=== PATIENT | male | born 1985 | race Caucasian/White ===

== ENCOUNTER 2020-05-01 23:06 | Emergency (ER) | payer MEDICAID, SELFPAY ==
[~2020-05-01] VITALS: Ht 170.2 cm; Wt 86.2 kg
[2020-05-01 23:43] VITALS: Ht 170.2 cm; Wt 86.2 kg
[2020-05-02 04:56] LABS: BASOPHIL % 0.4 % (0-2); PLATELET COUNT 168 x10^3mcL (130-400); RED CELL DISTRIBUTION WIDTH 14.1 % (11.5-14.5)
[2020-05-02 05:21] LABS: CALCIUM 9.3 mg/dL (8.5-10.1); CARBON DIOXIDE 23.9 mmol/L (21-32); CHLORIDE SERUM 100 mmol/L (98-107); GFR1 > 60 mL/min; GLUCOSE SERUM 101 mg/dL (74-106); POTASSIUM SERUM 3.3 mmol/L (3.5-5.1); SODIUM SERUM 133 mmol/L (136-145)
[2020-05-02 05:28] LABS: ALBUMIN 4.6 g/dL (3.4-5.0); ALKALINE PHOSPHATASE 52 U/L (46-116); ALT/SGPT 38 U/L (16-63); AST/SGOT 18 U/L (15-37); BILIRUBIN TOTAL 1.6 mg/dL (0.20-1.00)
[2020-05-02 05:35] LABS: TOTAL PROTEIN, SERUM 8.5 g/dL (6.4-8.2)
[2020-05-02 10:22] LABS: UA SPECIFIC GRAVITY >=1.030 (1.005-1.035); microscopic required? YES; urine erythrocyte NEGATIVE (NEGATIVE)
[2020-05-02 10:51] LABS: AMPHETAMINE QUAL UR POSITIVE (See below)
[2020-05-03 17:39] VITALS: BP 119/73
== END 2020-05-03 17:39 | disposition home or self-care (01) ==
LOC: ED 23:06
PROVIDERS: Emergency Medicine
DX: F29 Unspecified psychosis not due to a substance or known physiological condition (principal); Z20.828 Contact with and (suspected) exposure to other viral communicable diseases
CPT/HCPCS: G0480; U0003-CS